=== PATIENT | male | born 1975 | race African-American/Black ===

== ENCOUNTER 2018-01-05 13:39 | Emergency (ER) | payer SELFPAY ==
[2018-01-05 15:02] LABS: BASOPHILS 0.5 % (0-2); EOSINOPHILS 2.5 % (0-7); HEMATOCRIT 36.4 % (42.0-54.0); IMMATURE GRANULOCYTES 0.2 % (0-5); LYMPHOCYTES 31.1 % (15-50); MCH 25.8 pg (26.0-34.0); MCV 78.1 fL (80.0-100.0); MONOCYTES 8.4 % (2-11); NEUTROPHILS 57.3 % (40-80); PLATELET COUNT 180 10x3/uL (130-400); RBC 4.66 10x6/uL (4.20-6.10); RDW 15.4 % (11.5-14.5); WBC 4.4 10x3/uL (4.8-10.8)
[2018-01-05 15:24] LABS: ALBUMIN 3.6 g/dL (3.4-5.0); ALKALINE PHOSPHATASE 57 U/L (46-116); ALT (SGPT) 31 U/L (10-68); CALC OSMOLALITY 272 mosm/kg (275-300); CALCIUM 8.5 mg/dL (8.5-10.1); CARBON DIOXIDE 26.5 mmol/L (21.0-32.0); CHLORIDE - SERUM 103 mmol/L (98-107); CREATININE - SERUM 0.7 mg/dL (0.6-1.3); GLUCOSE 97 mg/dL (74-106); POTASSIUM - SERUM 4.3 mmol/L (3.5-5.1); PROTEIN - SERUM 6.9 g/dL (6.4-8.2); SODIUM 136 mmol/L (136-145); UREA NITROGEN 14 mg/dL (7-18); eGFR NON AFRICAN AMERICAN > 90 mL/min (90-120)
[2018-01-05 15:33] LABS: PRO BNP 21 pg/mL (0-125); TROPONIN-I < 0.017 ng/mL (0.000-0.060)
== END 2018-01-05 14:00 | disposition left against medical advice (07) ==
LOC: D.ER 13:39
PROVIDERS: Family Medicine
DX: Z02.9 Encounter for administrative examinations, unspecified (principal)

== ENCOUNTER → 2018-01-05 14:25 | Emergency (ER) | payer SELFPAY | END | disposition left against medical advice (07) | LOC: D.ER 14:25 | DX: L59.9 Disorder of the skin and subcutaneous tissue related to radiation, unspecified (principal) ==